=== PATIENT | female | born 1940 | race African-American/Black ===

== ENCOUNTER 2018-01-08 18:55 | Emergency (ER) | payer MEDICARE, OTHER ==
[~2018-01-08] VITALS: Ht 160 cm; Wt 70.0 kg
[2018-01-08 18:57] VITALS: BP 154/88
== END 2018-01-08 20:51 | disposition left against medical advice (07) ==
LOC: EMS 18:57
DX: M25.561 Pain in right knee (principal); M25.562 Pain in left knee; I10 Essential (primary) hypertension; Z53.21 Procedure and treatment not carried out due to patient leaving prior to being seen by health care provider